=== PATIENT | female | born 1990 | race Two or more races ===

== ENCOUNTER 2017-02-25 21:31 | Emergency (ER) | payer OTHER ==
[~2017-02-25] VITALS: Ht 167.6 cm; Wt 55.8 kg
--- NOTE | 2017-02-25 21:44 | NUR ---
CALLED PT'S MOTHER PER REQUEST
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
[2017-02-25] MEDS ORDERED: CEFAZOLIN 1 GM VIAL IM ONE (22:30)
[2017-02-25] MEDS ORDERED: SODIUM BICARBONATE 5 ML VIAL TP ONE (22:30)
[2017-02-25] MEDS ORDERED: LIDOCAINE 1%-EPI 1:100,000 20 ML VIAL TP ONE (22:30)
[2017-02-25] MEDS ORDERED: ONDANSETRON 4 MG TAB.RAPDIS SL ONE (22:30)
[2017-02-25] MEDS ORDERED: TDAP [DIPH/PERTUSSIS/TET] 0.5 ML VIAL IM ONE ×2 (22:30→22:31)
[2017-02-25] MEDS ORDERED: HYDROMORPHONE 1 MG/1 ML DISP.SYRIN IM ONE (22:30)
[2017-02-25] MEDS ORDERED: CEFAZOLIN 1 GM ONE (22:31)
[2017-02-25] MEDS ORDERED: ONDANSETRON 4 MG TAB.RAPDIS ONE (22:31)
[2017-02-25] MEDS ORDERED: WATER FOR INJECTION,STERILE 10 ML ONE (22:31)
[2017-02-25] MEDS ORDERED: HYDROMORPHONE 1 MG/1 ML DISP.SYRIN ONE (22:31)
--- NOTE | 2017-02-25 23:37 | NUR ---
Patient discharged to home in stable condition. Written and verbal after care instructions given. Patient verbalizes understanding of instruction. NAD noted. Assisted out via wheelchair d/t pain but able to ambulate.
[2017-02-25 23:39] VITALS: BP 114/79
== END 2017-02-25 23:39 | disposition home or self-care (01) ==
LOC: ER 21:33
DX: S01.21XA Laceration without foreign body of nose, initial encounter (principal); S02.2XXA Fracture of nasal bones, initial encounter for closed fracture; S09.90XA Unspecified injury of head, initial encounter; V43.62XA Car passenger injured in collision with other type car in traffic accident, initial encounter; Y93.89 Activity, other specified; Y92.413 State road as the place of occurrence of the external cause; Y99.8 Other external cause status
CPT/HCPCS: 12011; 90471; 90715; 96372 ×2; 99284; A4606; J0690; J1170; Q0162; Z7610